=== PATIENT | female | born 1950 | race Caucasian/White ===

== ENCOUNTER 2020-06-01 17:37 | Inpatient (IN) | payer OTHER, SELFPAY ==
[~2020-06-01] VITALS: Ht 149.9 cm; Wt 59.4 kg
[2020-06-01 17:43] VITALS: BP 203/80
--- NOTE | 2020-06-01 17:55 | NUR ---
Pt w/c assisted to bed 12.
--- NOTE | 2020-06-01 18:00 | NUR ---
Patient being evaluated by Dr. Sage at bedside.
--- NOTE | 2020-06-01 18:11 | NUR ---
69/F present to ED with c/o of left forehead pain and bleeding. Stated she suffered a fall on 05/24/20 and went to the doctors office today, seen by Dr. Isabel to have hematoma drained in which the site would not stop bleeding since and was sent here. Large hematoma noted to left forehead, bruising noted to face and chest. Patient denies N/V/D or disturbance of eyesight, no LOC, patient princess pain.
[2020-06-01] MEDS ORDERED: KETOROLAC 60 MG/2 ML VIAL IM ONE (18:25)
--- NOTE | 2020-06-01 18:25 | NUR ---
Patient has complaints of pain now, Dr. Sage made aware.
[2020-06-01 18:54] LABS: BASOPHILS # (AUTO) 0.1 K/uL (0.00-0.22); BASOPHILS % (AUTO) 2.1 % (0.0-2.0); EOSINOPHILS # (AUTO) 0.3 K/uL (0-0.4); EOSINOPHILS % (AUTO) 3.9 % (0.0-4.0); HEMATOCRIT 29.1 % (36-48); HEMOGLOBIN 9.3 g/dL (12.0-16.0); LYMPHOCYTES # (AUTO) 0.6 K/uL (2.5-16.5); MEAN CORPUSCULAR HEMOGLOBIN 30 pg (27-31); MEAN CORPUSCULAR HGB CONC 32 g/dL (33-37); MEAN CORPUSCULAR VOLUME 93.6 fL (80-94); MONOCYTES # (AUTO) 0.7 K/uL (0.8-1.0); MONOCYTES % (AUTO) 10.7 % (1.7-9.3); NEUTROPHILS # (AUTO) 4.9 K/uL (1.8-7.7); NEUTROPHILS % (AUTO) 74.3 % (42.2-75.2); PLATELET COUNT (AUTO) 123 K/uL (140-450); RED BLOOD CELL COUNT(AUTO) 3.11 MIL/uL (4.20-5.40); RED CELL DISTRIBUTION WIDTH 20.7 % (11.6-13.7); WHITE BLOOD COUNT (AUTO) 6.6 K/uL (4.8-10.8)
[2020-06-01 18:58] LABS: PROTHROMBIN TIME 11.5 secs (10.8-13.4)
--- NOTE | 2020-06-01 19:15 | NUR ---
REPORT RECEIVED FROM AMY HEAD FOR SHIFT CHANGE.
--- NOTE | 2020-06-01 20:30 | NUR ---
DRESSING CHANGE PERFORMED AT BEDSIDE TO HEAD.
--- NOTE | 2020-06-01 21:04 | NUR ---
WITH PERMISSION FROM PATIENT, SPOKE WITH MAYELA, FAMILY MEMBER. UPDATE GIVEN.
--- NOTE | 2020-06-01 21:12 | NUR ---
EKG PERFORMED AT BEDSIDE. EKG READS ATRIAL PACED COMPLEXES @ 64
--- NOTE | 2020-06-01 21:17 | NUR ---
MED REC. COLLECTED FROM MAYELA, FAMILY MEMBER, PER PATIENT CONSENT.
--- NOTE | 2020-06-01 21:20 | NUR ---
DRESSING CHANGE PERFORMED TO HEAD AT BEDSIDE.
[2020-06-01 21:28] LABS: ALBUMIN 3.9 g/dL (3.4-5.0); ANION GAP 15.6 (8-16); ASPARTATE AMINOTRANSFERASE 16 U/L (15-37); CARBON DIOXIDE 27.1 mmol/L (21-32); CHLORIDE 95 mmol/L (98-107); GLUCOSE 228 mg/dL (74-106); POTASSIUM 4.7 mmol/L (3.5-5.1); SODIUM SERUM 133 mmol/L (136-145); TOTAL BILIRUBIN 0.7 mg/dL (0.0-1.0); UREA NITROGEN, BLOOD 32 mg/dL (7-18)
--- NOTE | 2020-06-01 21:28 | NUR ---
LABS DRAWN FROM 20G IV SITE RFA BY AMY CASTELLON AND HAND GIVEN TO ROULA ABREU TECH.
--- NOTE | 2020-06-01 21:29 | NUR ---
CRITICAL LAB VALUE RECIEVED BY CARLOS, CHIEF DESIGN ENGINEER. CREATININE 5.8. CARINAD MADE AWARE.
[2020-06-01 21:30] LABS: CREATININE 5.8 mg/dL (0.6-1.3)
--- NOTE | 2020-06-01 21:34 | NUR ---
HAYDEE REBOLLAR COLLECTED AND TAKEN TO LAB.
[2020-06-01] MEDS ORDERED: SIMV10TA1 PO (21:40)
[2020-06-01] MEDS ORDERED: FAMO40PD4 PO (21:40)
[2020-06-01] MEDS ORDERED: VITA1TAB44 PO (21:40)
[2020-06-01] MEDS ORDERED: SPIR25TA20 PO (21:40)
[2020-06-01] MEDS ORDERED: APR10 PO (21:40)
[2020-06-01] MEDS ORDERED: NIFE60TE5 PO (21:40)
[2020-06-01] MEDS ORDERED: TTS3 TD (21:40)
[2020-06-01] MEDS ORDERED: NOVN SUBQ (21:40)
[2020-06-01] MEDS ORDERED: FURO-570 PO (21:40)
[2020-06-01] MEDS ORDERED: CALC667T8 PO (21:40)
[2020-06-01] MEDS ORDERED: METO100T14 PO (21:40)
[2020-06-01] MEDS ORDERED: GABA100C PO (21:40)
--- NOTE | 2020-06-01 21:59 | NUR ---
CONSENT RECIEVED FROM PATIENT TO SPEAK WITH ADELINA LIN ([phone]). ALL QUESTIONS ANSWERED.
--- NOTE | 2020-06-01 22:00 | NUR ---
XRAY AT BEDSIDE.
[2020-06-01] MEDS ORDERED: LIDOCAINE/EPI MPF 1%1:200000 30 ML VIAL INJ ONE (22:21)
[2020-06-01] MEDS ORDERED: ceFAZolin 1,000 MG VIAL ONE (22:22)
--- NOTE | 2020-06-01 22:30 | NUR ---
Patient will be admitted to care of MD JOSHUA. Admited to TELEMETRY. Will go to ROOM 120-A. Belongings list completed. Report to ANAYELI JAFFE.
[2020-06-01] MEDS ORDERED: DEXAMETHASONE 4 MG/ML VIAL ONE (23:15)
[2020-06-01] MEDS ORDERED: ETOMIDATE 20 MG/10 ML VIAL IVP ONE (23:15)
[2020-06-01] MEDS ORDERED: ONDANSETRON 4 MG/2 ML VIAL ONE (23:15)
[2020-06-01] MEDS ORDERED: SUCCINYLCHOLINE CHLORIDE 200 MG/10 ML VIAL IVP ONE (23:15)
[2020-06-01] MEDS ORDERED: MIDAZOLAM 2 MG/2 ML VIAL ONE (23:15)
[2020-06-01] MEDS ORDERED: SEVOFLURANE 250 ML BTL INH ONE (23:15)
[2020-06-02] MEDS ORDERED: ONDANSETRON 4 MG/2 ML VIAL IVP PRN
[2020-06-02] MEDS ORDERED: BLOOD GLUCOSE MONITORING 1 DEV DEV FS SCH
[2020-06-02] MEDS ORDERED: MEPERIDINE 25 MG/ML SYR IVP PRN
[2020-06-02] MEDS ORDERED: DEXT 5% /NACL 0.9% 1,000 ML IV SCH (00:05)
[2020-06-02] MEDS ORDERED: MORPHINE SULFATE 2 MG/ML SYR IVP PRN (00:05)
[2020-06-02] MEDS ORDERED: HYDROcodone/APAP 5/325 MG 1 TAB TAB PO PRN (00:05)
[2020-06-02] MEDS ORDERED: ONDANSETRON 4 MG/2 ML VIAL IV PRN (00:05)
[2020-06-02] MEDS ORDERED: MORPHINE SULFATE 4 MG/ML SYR IV PRN (00:05)
[2020-06-02] MEDS ORDERED: CEFAZOLIN SODIUM 1 GM/D5W PM 50 ML IV SCH (01:00)
--- NOTE | 2020-06-02 01:30 | NUR ---
RECEIVING PATIENT FROM OR NURSE TRANSFER VIA [facility]. WILL TAKE REPORT AND START PATIENT ASSESSMENT.
[2020-06-02 01:45] VITALS: BP 170/62
--- NOTE | 2020-06-02 01:45 | NUR ---
DX BLEEDING HEMATOMA. RECEIVING PATIENT FROM OR AFTER INCISION AND DRAINAGE SCALP LEFT HEMATOMA CONTROL ACTIVE BLEEDING. PATIENT IS A/A/O X4. PUPIL EQUAL, ROUND, REACT TO LIGHT. ON TELE MONITOR. RESPIRATORY EVEN AND UNLABORED, ON 2L OXYGEN VIA NC, O2 SAT 94%, NO SIGN OF RESPIRATORY DISTRESS NOTED. SKIN WARM, DRY, NON-DIAPHORETIC. INCISION ON LEFT FOREHEAD WITH DRESSING, DRESSING INTACT, MODERATE AMOUNT OF BLOOD NOTED. SWOLLEN AND BRUISE ON LEFT EYE. BRUISE ON CHIN. CHEST BRUISE. MID CHEST SC. PACEMAKER NOTED ON LEFT UPPER CHEST. AV SHUNT ON LEFT UPPER ARM. IV ON RIGHT FOREARM 20G. PATIENT ABLE TO MAKE NEEDS KNOWN, DENIES ANY PAIN OR DISCOMFORT. PLAN OF CARE DISCUSSED, ORIENTED TO ROUTINE AND CALL LIGHT, PATIENT VERBALIZED UNDERSTANDING. MRSA SWABBED. HOB ELEVATED. PRECAUTION IN PLACE. CALL LIGHT WITHIN REACH. WILL CONTINUE TO MONITOR.
--- NOTE | 2020-06-02 02:20 | NUR ---
PAGED DR LEWIS TO CONCERNS THE DRESSING IS LOOSING AND SOAK WET WITH BLOOD. WAITING FOR RESPONSE.
--- NOTE | 2020-06-02 02:25 | NUR ---
CONTACTED OR NURSE TO CONCERN THE DRESSING. OR NURSE ARRIVE TO CHANGE DRESSING.
--- NOTE | 2020-06-02 02:45 | NUR ---
TEXT DR CASON FOR MEDICATION ORDER. WAITING FOR RESPONSE.
--- NOTE | 2020-06-02 03:29 | NUR ---
RECEIVED TEXT FROM DR CASON, [employer], NS AT 60ML/HR. CLONIDINE 0.2MG PO X1 NOW, THEN CLONIDINE 0.2MG PO DAILY, ACCUCHECK AC/HS, HUMALOG S/S. WILL PLACE ORDER AND ADMINISTER MEDICATION.
[2020-06-02] MEDS ORDERED: CLONIDINE HYDROCHLORIDE 0.1 MG TAB PO SCH (03:50)
[2020-06-02] MEDS: NACL 0.9% 1,000 ML IV SCH ×2 (03:50→20:30)
[2020-06-02 04:00] VITALS: BP 152/67
[2020-06-02 06:13] LABS: ALBUMIN 2.9 g/dL (3.4-5.0); ANION GAP 15.5 (8-16); ASPARTATE AMINOTRANSFERASE 15 U/L (15-37); CARBON DIOXIDE 24.2 mmol/L (21-32); CHLORIDE 99 mmol/L (98-107); GLUCOSE 215 mg/dL (74-106); POTASSIUM 5.7 mmol/L (3.5-5.1); SODIUM SERUM 133 mmol/L (136-145); TOTAL BILIRUBIN 0.6 mg/dL (0.0-1.0); UREA NITROGEN, BLOOD 36 mg/dL (7-18)
[2020-06-02 06:22] LABS: CREATININE 6.3 mg/dL (0.6-1.3)
--- NOTE | 2020-06-02 06:28 | NUR ---
TEXT DR CASON, PATIENT POTASSIUM 5.7 AND CREATININE 6.3. THEY ARE TRENDING UP. WAITING FOR RESPONSE.
[2020-06-02 06:29] LABS: BASOPHILS # (AUTO) 0.1 K/uL (0.00-0.22); EOSINOPHILS % (AUTO) 0.4 % (0.0-4.0); LYMPHOCYTES # (AUTO) 0.4 K/uL (2.5-16.5)
[2020-06-02 06:32] LABS: BASOPHILS % (AUTO) 1.2 % (0.0-2.0); LYMPHOCYTES % (AUTO) 4.5 % (20.5-51.1); MEAN CORPUSCULAR HEMOGLOBIN 31 pg (27-31); MEAN CORPUSCULAR HGB CONC 33 g/dL (33-37); MEAN CORPUSCULAR VOLUME 94.7 fL (80-94); MONOCYTES # (AUTO) 0.2 K/uL (0.8-1.0); MONOCYTES % (AUTO) 2.6 % (1.7-9.3); NEUTROPHILS # (AUTO) 7.3 K/uL (1.8-7.7); NEUTROPHILS % (AUTO) 91.3 % (42.2-75.2); RED BLOOD CELL COUNT(AUTO) 1.99 MIL/uL (4.20-5.40); RED CELL DISTRIBUTION WIDTH 20.2 % (11.6-13.7)
--- NOTE | 2020-06-02 06:45 | NUR ---
PAGED DR LEWIS, REPORT PATIENT HGB 6.2 AND HCT 18.8. WAITING FOR CALL BACK.
[2020-06-02 06:49] LABS: HEMOGLOBIN 6.2 g/dL (12.0-16.0)
[2020-06-02 06:50] LABS: HEMATOCRIT 18.8 % (36-48); PLATELET COUNT (AUTO) 150 K/uL (140-450)
--- NOTE | 2020-06-02 06:50 | NUR ---
RECEIVED CALL FROM DR LEWIS, NEW ORDER 3 UNITS OF PRBC STAT, AND CONTINUE NPO STATUS.
--- NOTE | 2020-06-02 07:05 | NUR ---
RECEIVED CALL FROM OR NURSE. PATIENT WILL TRANSFER TO OR AT [address] LEWIS. WILL ENDORSE TO AM NURSE FOR CONTINUITY OF CARE.
--- NOTE | 2020-06-02 07:14 | NUR ---
ENDORSED PATIENT TO AM NURSE FOR CONTINUITY OF CARE. PATIENT IS STABLE.
--- NOTE | 2020-06-02 07:15 | NUR ---
RECEIVED PATIENT FROM NIGHT NURSE. PATIENT IN BED AWAKE AND ALERT. EYES CLOSED BUT ABLE TO RESPOND APPROPRIATELY. RESP EVEN AND UNLABORED ON 2L NC. C/O MINOR ACHES TO BODY BUT TOLERABLE. HEAD WRAPPED WITH DRESSING, STAINED WITH BLOOD. NO ACTIVE BLEEDING NOTED AT THIS TIME. PACKED CELL X3 UNIT NOTED, WILL TRANSFUSE WHEN BLOOD BECOMES AVAILABLE. PATIENT SCHEDULED TO RETURN TO OR AT [address] LEWIS. RFA 20G INFUSING WELL. HOB ELEVATED. SAFETY MEASURES IN PLACE. CALL LIGHT WITHIN REACH. WILL CONTINUE TO MONITOR. Addendum: 06/02/20 at 1240 by Ihsan Turpin RN LAV SHUNT FOR HD.
[2020-06-02] MEDS: BLOOD GLUCOSE MONITORING 1 DEV DEV FS SCH ×4 (07:30→20:50)
[2020-06-02 08:00] VITALS: BP 183/66
[2020-06-02] MEDS: CALCIUM ACETATE 667 MG TAB PO SCH ×3 (08:00→16:58)
--- NOTE | 2020-06-02 08:40 | NUR ---
DR LEWIS MADE AWARE OF BP 183/66 HR 59, POTASSIUM 5.7, BUN 36 CREAT 6.3 PATIENT IS NOW NPO FOR SCHEDULED SURGERY AT [address] LEWIS, HE WANTS PATIENT DIALYZED BEFORE GOING INTO SURGERY. DR SHORE WAS PAGED. AWAITING FOR CALL BACK. HOLDING MORNING ROUTINE MEDICATIONS UNTIL FURTHER NOTICED. PATIENT IN BED AWAKE AND ALERT. ABLE TO MAKE NEEDS KNOWN. CALL LIGHT WITHIN REACH. WILL CONTINUE TO MONITOR. Addendum: 06/02/20 at 1010 by Ihsan Turpin RN FAILED ATTEMPTS MADE TO CALL FAMILY FOR PHONE CONSENT. WILL MAKE ANOTHER ATTEMPT
[2020-06-02] MEDS: hydrALAZINE 25 MG TAB PO SCH ×3 (09:00→16:58)
[2020-06-02] MEDS: FUROSEMIDE 20 MG TAB PO SCH ×2 (09:00→20:52)
[2020-06-02] MEDS ORDERED: GABAPENTIN 300 MG CAP PO SCH ×3 (09:00→13:00)
[2020-06-02] MEDS ORDERED: GABAPENTIN 100 MG CAP PO SCH (09:00)
[2020-06-02] MEDS: FAMOTIDINE 20 MG TAB PO SCH (09:00)
[2020-06-02] MEDS ORDERED: FAMOTIDINE 20 MG TAB PO SCH (09:00)
[2020-06-02] MEDS: FOLIC ACID 1 MG TAB PO SCH ×3 (09:00→16:57)
[2020-06-02] MEDS: CLONIDINE HYDROCHLORIDE 0.1 MG TAB PO SCH (09:00)
[2020-06-02] MEDS: METOPROLOL SUCCINATE 50 MG TABER PO SCH ×2 (09:00→20:51)
[2020-06-02] MEDS: SPIRONOLACTONE 25 MG TAB PO SCH (09:00)
--- NOTE | 2020-06-02 09:17 | NUR ---
FNS REFERRAL RECEIVED NOT APPROPRIATE FOR "NOT APPLICABLE" REASON WITH NO OTHER HIGH NUTRITIONAL RISK INDICATOR. PATIENT HAS BEEN SCREENED AND CATEGORIZED MODERATE NUTRITION RISK. PATIENT WILL BE SEEN WITHIN 3-5 DAYS OF ADMISSION. 06/04/20 06/06/[address]
[2020-06-02] MEDS ORDERED: DOCUSATE SODIUM 100 MG GELCAP PO PRN (09:25)
[2020-06-02] MEDS ORDERED: ONDANSETRON 4 MG/2 ML VIAL IM/IVP PRN (09:25)
[2020-06-02] MEDS ORDERED: ZOLPIDEM 5 MG TAB PO PRN (09:25)
[2020-06-02] MEDS ORDERED: ACETAMINOPHEN 325 MG TAB PO PRN (09:25)
[2020-06-02] MEDS ORDERED: LORazepam 2 MG/ML VIAL IM/IVP PRN (09:25)
[2020-06-02] MEDS ORDERED: POTASSIUM CHLORIDE 10 MEQ TABER PO PRN (09:30)
[2020-06-02] MEDS ORDERED: SODIUM ZIRCONIUM CYCLOSILICATE 10 GM POWD.PACK PO SCH (09:30)
[2020-06-02] MEDS ORDERED: MAG SULF 2000 MG/WATER PREMIX 50 ML IV PRN (09:30)
[2020-06-02] MEDS: INSULIN LISPRO SLIDING SCALE 100 UNITS/ML VIAL SUBQ PRN (09:44)
[2020-06-02] MEDS: INSULIN NPH HUMAN ISOPHANE 100 UNIT/ML VIAL SUBQ SCH (09:48)
--- NOTE | 2020-06-02 09:50 | NUR ---
RECEIVED CALL BACK FROM DR SHORE. PATIENT STATUS UPDATED. RECEIVED TELEPHONE ORDER FOR HEMODIALYSIS STAT WITH 3 UNITS PACKED CELLS TRANSFUSION, DDVAP 25MCG IV X1 OVER 30 MINS AFTER HEMODIALYSIS, GIVE ROUTINE ADALAT 60MG, HUMALOG AND HUMALIN, HOLD OTHER ROUTINE MEDICATIONS AT THIS TIME. ORDERS READ BACK CONFIRMED AND CARRIED OUT. [facility] NOTIFIED OF STAT ORDER OF HD, WILL PERFORM HD AT ESTIMATE TIME 1030. WILL CONTINUE TO MONITOR. Addendum: 06/02/20 at 1240 by Ihsan Turpin RN BRUISING NOTED TO CHEST. SKIN INTACT. NO EDEMA NOTED TO LOWER EXTREMITIES AT THIS TIME. Addendum: 06/02/20 at 1627 by Ihsan Turpin RN BRUISING NOTED TO FACE
[2020-06-02] MEDS: NIFEdipine 60 MG TABER PO SCH ×2 (09:58→20:52)
--- NOTE | 2020-06-02 10:05 | NUR ---
SOCIAL WORK NOTE: Patient's Orientation Unable To Assess Information Provided By GAETANOMABLE NICK Comments SW WAS UNABLE TO MEET PATIENT AT BEDSIDE. SW CONTACTED PATIENT'S SISTER WHO REQUESTED SW SPEAK TO NIECE TO COMPLETE ASSESSMENT. Tag Stringer, Realtionship and Phone Number GUNJAN PARKER SISTER [phone] GAETANO NICK [phone] Healthcare Power of Product Inspection Coordinator No Does Patient Have a POLST No Identifying Problems No Social Work Triggers Is A Social Work Consult Needed No Mandate Report Filed No Explanation Of Identifying Problems PATIENT IS A 69-YEAR-OLD FEMLAE ADMITTED FOR BLEEDING HEMATOMA. PATIENT HAS PMHX OF DIABETES, HYPERTENSION, AND RENAL DISEASE. Admitted From Home Pre-Admission Level Of Functioning Status Independent With DME Level Of Functioning Comment PER NIECE, PATIENT IS INDEPENDENT WITH ALL ADLS WITH USE OF WALKER. Prior Resources/Services Used In Last 12 Months No Prior Resources Used Prior DME No Prior DME Used Dialysis Hemodialysis Name And Phone Number of Dialysis Facility [facility] - [phone] ESRD Outpatient Days T TH SAT ESRD Outpatient Time [address] Living Situation Apartment Lives W/Significant Other Patient Had Caregiver No Home Support No Caregiver Issues Financial Issues No Known Financial Issue Referral To The Financial Counselor Needed No Factors/Needs No D/C Needs Identified Pt/Rep Participated In Discharge Plan Yes Patient/Family Agress With Discharge Plan Yes Discharge Plan Comments TENTATIVE DISCHARGE PLAN IS FOR PATIENT TO RETURN HOME. DC Plan Status Initiated
[2020-06-02 10:15] LABS: CHOL/HDL RATIO 2.3 (1-4.5); MAGNESIUM 2.6 mg/dL (1.8-2.4); PHOSPHORUS 3.9 mg/dL (2.5-4.9); THYROID STIMULATING HORMONE 1.81 uIU/mL (0.34-3.74)
--- NOTE | 2020-06-02 10:19 | NUR ---
DC PLANNIN YRS OLD FEMALE PATIENT WAS ADMITTED FROM HOME WITH A DX OF LEFT FOREHEAD BLEEDING HEMATOMA/WOUND. PT HAS A HX OF CABG PACEMAKER, DM, HTN AND ESRD ON HEMODIALYSIS TTHS. CXR SHOWED CARDIOMEGALY MILD PULMONARY VENOUS CONGESTION. RAPID COVID TEST NEGATIVE. H/H 6.2/18.8 ORDERED 6 UNIT OF PRBC TO BE TRANSFUSED DURING HEMODIALYSIS. PT IS SCHEDULED FOR ID AFTER HEMODIALYSIS. ADMINISTERED IVF, CONTINUED HOME MEDS. DC PLAN PER PATIENT RESPONSE TO THE TREATMENT. CM TO FOLLOW Addendum: 06/04/20 at 1131 by Angelica Carey CM DC CREDIT DEPARTMENT MANAGER: RECEIVED ORDER FOR SNF FOR PT/OT AND WOUND CARE. SPOKE TO PATIENTS GUNJAN HAWLEY [phone] TO DISCUSS SNF SHE STATED THAT IF PATIENT IS ALERT AND ORIENTED SHE DOES NOT MAKE MEDICAL DECISIONS. SPOKE TO AMY VYAS SHE STATED PATIENT IS ALERT, SHE SPOKE TO PATIENT AND PATIENT IS AGREEABLE TO SNF AND DOES NOT HAVE A PREFERENCE. Addendum: 06/04/20 at 1147 by Angelica Carey CM SARAH CONNELLY [facility]ACK[facility] . SPOKE TO WILLIAM IN ADMISSIONS SHE IS REVIEWING THE PACKET AND WILL GET BACK TO ME SHORTLY Addendum: 06/04/20 at 1242 by Angelica Carey CM SARAH CONNELLY: RECEIVED A CALL FROM WILLIAM THEY ARE ABLE TO ACCEPT PATIENT. ROOM 104-B UNDER DR. GREENBERG Addendum: 06/04/20 at 1247 by Angelica Carey CM SARAH CONNELLY[facility] [address] [place] [address] [address] DR[address] GREENBERG Addendum: 06/04/20 at 1350 by Angelica Carey CM SARAH CONNELLY: TRANSPORTATION HAS BEEN ARRANGED WITH [facility] [phone]. ETA OF FLUTE POLISHER IS 4:00 PM Addendum: 06/04/20 at 1402 by Angelica Carey CM SARAH CONNELLY: ARRANGED TRANSPORTATION FOR PATIENT TO AND FROM DIALYSIS WITH [facility]
[2020-06-02] MEDS ORDERED: DESMOPRESSIN 4 MCG/ML AMP IV SCH (10:30)
--- NOTE | 2020-06-02 10:40 | NUR ---
SPOKE TO SISTER GUNJAN LOREDO AND OBTAINED TELEPHONE CONSENTS FOR HEMODIALYSIS, BLOOD TRANSFUSION, AND OR PROCEDURE WITH DR LEWIS. ALL QUESTIONS ANSWERED. GUNJAN VERBALIZED UNDERSTANDING. WILL CONTINUE TO MONITOR.
--- NOTE | 2020-06-02 10:47 | NUR ---
HD STARTED Addendum: 06/02/20 at 1758 by Ihsan Turpin RN DR LEWIS AT BEDSIDE TO CHANGE BANDAGE TO HEAD WOUND.
--- NOTE | 2020-06-02 11:26 | NUR ---
1ST UNIT OF PACKED CELLS GIVEN TO DIALYSIS NURSE.
--- NOTE | 2020-06-02 11:40 | NUR ---
RECEIVED TELEPHONE ORDER FROM DR CASON FOR NEURONTIN 300MG PO EVERY OTHER DAY PER RX RECOMMENDATION D/T HIGH BUN/CREAT. ORDER READ BACK AND CONFIRMED, CARRIED OUT.
[2020-06-02 12:00] VITALS: BP 176/68
--- NOTE | 2020-06-02 12:19 | NUR ---
2ND UNIT OF PACKED CELLS GIVEN TO DIALYSIS NURSE. BLOOD SUGAR 122, NO INSULIN COVERAGE PER SLIDING SCALE. ROUTINE MEDICATIONS HELD AT THIS TIME DURING HD PER HD NURSE. PATIENT IN BED EASILY AWAKE AND ALERT. NO NOTED DISTRESS AT THIS TIME. WILL CONTINUE TO MONITOR.
--- NOTE | 2020-06-02 14:45 | NUR ---
HD DONE WITH 3 UNITS OF PACKED CELLS TRANSFUSED. PATIENT TOLERATED WELL. BP 216/71 HR 60. MORPHINE GIVEN AT THIS TIME. DR CASON MADE AWARE. WILL REASSESS BP LATER FOR EFFECTIVENESS. PERSONAL CARE RENDERED. PATIENT TOLERATED WELL. WILL CONTINUE TO MONITOR. Addendum: 06/02/20 at 1820 by Ihsan Turpin RN 2L OUT FROM HD
[2020-06-02 16:00] VITALS: BP 185/75
[2020-06-02 16:05] LABS: BASOPHILS % (AUTO) 0.3 % (0.0-2.0); HEMATOCRIT 32.4 % (36-48); HEMOGLOBIN 10.8 g/dL (12.0-16.0); LYMPHOCYTES # (AUTO) 0.6 K/uL (2.5-16.5); LYMPHOCYTES % (AUTO) 6.6 % (20.5-51.1); MEAN CORPUSCULAR HEMOGLOBIN 30 pg (27-31); MEAN CORPUSCULAR HGB CONC 33 g/dL (33-37); MEAN CORPUSCULAR VOLUME 90.8 fL (80-94); MONOCYTES # (AUTO) 1.6 K/uL (0.8-1.0); MONOCYTES % (AUTO) 16.3 % (1.7-9.3); NEUTROPHILS # (AUTO) 7.4 K/uL (1.8-7.7); NEUTROPHILS % (AUTO) 76.8 % (42.2-75.2); PLATELET COUNT (AUTO) 93 K/uL (140-450); RED BLOOD CELL COUNT(AUTO) 3.57 MIL/uL (4.20-5.40); RED CELL DISTRIBUTION WIDTH 16.9 % (11.6-13.7); WHITE BLOOD COUNT (AUTO) 9.7 K/uL (4.8-10.8)
[2020-06-02 16:15] LABS: ANION GAP 9.2 (8-16); CARBON DIOXIDE 30.3 mmol/L (21-32); CHLORIDE 99 mmol/L (98-107); CREATININE 3.5 mg/dL (0.6-1.3); GLUCOSE 120 mg/dL (74-106); POTASSIUM 3.5 mmol/L (3.5-5.1); SODIUM SERUM 135 mmol/L (136-145); UREA NITROGEN, BLOOD 18 mg/dL (7-18)
[2020-06-02] MEDS ORDERED: DESMOPRESSIN 0.025 MG in NACL 0.9% 50 ML IV SCH (16:30)
--- NOTE | 2020-06-02 16:41 | NUR ---
BLOOD GLUCOSE 103, NO INSULIN PROVIDED PER SLIDING SCALE. BP 185/[address] CASON MADE AWARE, RECEIVED ORDER FOR HYDRALAZINE 10MG IVP X1 NOW. ORDER CARRIED OUT. Addendum: 06/02/20 at 1758 by Ihsan Turpin RN NO NOTED DRAINAGE TO HEAD BANDAGE. CLEAN AND INTACT
--- NOTE | 2020-06-02 16:55 | NUR ---
RECEIVED ORDER CLARIFICATION: GIVE ROUTINE HYDRALAZINE PO, AND CHANGE HYDRALAZINE 10MG IVP Q6H FOR SBP >180. ORDER CARRIED OUT.
[2020-06-02] MEDS ORDERED: hydrALAZINE 20 MG/ML VIAL IVP SCH (17:00)
--- NOTE | 2020-06-02 17:43 | NUR ---
PATIENT IN BED SLEEPING, CHEST NOTED RISING. RESP EVEN AND UNLABORED ON 2LNC, O2SAT 97%. NO NOTED ACUTE S/S DISTRESS. CALL LIGHT WITHIN REACH. WILL CONTINUE TO MONITOR.
--- NOTE | 2020-06-02 19:20 | NUR ---
ENDORSED PATIENT TO NIGHT NURSE. PATIENT IN STABLE CONDITION.
--- NOTE | 2020-06-02 19:32 | NUR ---
PT SEEN AND ASSESSED. PT IS AWAKE AND ALERT. FOUND PT ON 2L NASAL CANNULA WITH SPO2 OF 100%. TITRATED PT TO ROOM AIR. SPO2 95%.PT TOLERATING WELL. AUSCULTATION REVEALS CLEAR/ DIMINISHED BREATH SOUNDS. NO NOTED RESPIRATORY DISTRESS AT THIS TIME.RN NOTIFIED. WILL CONTINUE TO MONITOR PT.
--- NOTE | 2020-06-02 19:40 | NUR ---
RECEIVED BEDSIDE REPORT FROM DAY SHIFT NURSE FOR CONTINUITY OF CARE. PT SCHEDULE WAS CHANGED AND NOW ENDORSED INFORMATION TO CHERELLE RN (HOLISTIC SPECIALIST NURSE). PLAN OF CARE DISCUSSED.
[2020-06-02 20:00] VITALS: BP 169/58
--- NOTE | 2020-06-02 20:00 | NUR ---
RECEIVED PATIENT A/A/OX4, LAYING IN BED NOT IN ANY DISTRESS . PATIENT DENIES ANY CHEST PAIN, SOB AND PALPITATIONS. PT JUST VERBALIZED THAT SHE HAS ABDOMINAL PAIN AND WANTED SOMETHING FOR IT. WILL MEDICATE THE PATIENT ORDERED. PATIENT S/P I & D OF THE LEFT FOREHEAD WOUND,EVACUATION OF HEMATOMA & CONTROL OF BLEEDING. HEAD DRESSING C/D/I, NO OOZING OR BLEEDING NOTED.VITAL SIGNS STABLE, AFEBRILE, SATING 94% ON 2L/NC. SR WITH BBB, HR- 75. FALL PRECAUTION IMPLEMENTED. INSTRUCTED THE PT NOT TO GET OUT OF BED AND TO CALL FOR ASSISTANCE AT ALL TIMES. PT VERBALIZED UNDERSTANDING WITH THE POC. CALL LIGHT WITHIN REACH. WILL CONTINUE POC AND MONITORING.
[2020-06-02] MEDS: HYDROmorphone 1 MG/ML AMP IVP PRN (20:53)
[2020-06-02] MEDS: SIMVASTATIN 10 MG TAB PO SCH (21:03)
--- NOTE | 2020-06-02 22:00 | NUR ---
ADMINISTERED ALL THE SCHEDULED MEDICATIONS ORDERED AND PT TOLERATED IT WELL. NO ADVERSE DRUG REACTION NOTED. NO COMPLAIN FROM THE PATIENT.
[2020-06-03] VITALS (8 sets, daily range): BP systolic 155–197; BP diastolic 57–72
--- NOTE | 2020-06-03 | NUR ---
BP HIGH 195/72, WILL GIVE THE PRN MEDICATION,AFEBRILE, SATING 99% ON 2L/NC. SR WITH BBB TOBACCO PRIZER, HR-74. NO COMPLAIN OF PAIN AT THIS TIME.
[2020-06-03] MEDS: hydrALAZINE 20 MG/ML VIAL IVP PRN ×3 (00:36→10:32)
--- NOTE | 2020-06-03 02:00 | NUR ---
PATIENT ASLEEP AT THIS TIME. VISIBLE CHEST RISE AND FALL NOTED. NOT IN ANY DISTRESS. CALL LIGHT WITHIN REACH.
[2020-06-03] MEDS: NACL 0.9% 1,000 ML IV SCH ×2 (02:50→10:54)
--- NOTE | 2020-06-03 04:00 | NUR ---
BP HIGH AGAIN 186/62, HR-68, AFEBRILE, SATING 100% ON 2L/NC. ACCELERATED JUNCTIONAL RHYTHM ON COTTON MACHINE OPERATOR, HR-68. NO COMPLAIN OF PAIN AT THIS TIME.
[2020-06-03 05:52] LABS: ANION GAP 11.9 (8-16); CARBON DIOXIDE 30.1 mmol/L (21-32); CHLORIDE 98 mmol/L (98-107); GLUCOSE 121 mg/dL (74-106); SODIUM SERUM 136 mmol/L (136-145); UREA NITROGEN, BLOOD 22 mg/dL (7-18)
[2020-06-03 06:09] LABS: BASOPHILS # (AUTO) 0.1 K/uL (0.00-0.22); BASOPHILS % (AUTO) 0.7 % (0.0-2.0); EOSINOPHILS # (AUTO) 0.1 K/uL (0-0.4); EOSINOPHILS % (AUTO) 0.9 % (0.0-4.0); HEMATOCRIT 30.9 % (36-48); HEMOGLOBIN 10.2 g/dL (12.0-16.0); LYMPHOCYTES # (AUTO) 0.7 K/uL (2.5-16.5); LYMPHOCYTES % (AUTO) 7.3 % (20.5-51.1); MEAN CORPUSCULAR HEMOGLOBIN 30 pg (27-31); MEAN CORPUSCULAR HGB CONC 33 g/dL (33-37); MEAN CORPUSCULAR VOLUME 92.5 fL (80-94); MONOCYTES # (AUTO) 1.5 K/uL (0.8-1.0); MONOCYTES % (AUTO) 15.2 % (1.7-9.3); NEUTROPHILS # (AUTO) 7.5 K/uL (1.8-7.7); NEUTROPHILS % (AUTO) 75.9 % (42.2-75.2); PLATELET COUNT (AUTO) 107 K/uL (140-450); RED BLOOD CELL COUNT(AUTO) 3.34 MIL/uL (4.20-5.40); RED CELL DISTRIBUTION WIDTH 17.4 % (11.6-13.7); WHITE BLOOD COUNT (AUTO) 9.9 K/uL (4.8-10.8)
[2020-06-03 06:11] LABS: MAGNESIUM 2.1 mg/dL (1.8-2.4); PHOSPHORUS 3.8 mg/dL (2.5-4.9)
[2020-06-03] MEDS: BLOOD GLUCOSE MONITORING 1 DEV DEV FS SCH ×4 (06:12→21:07)
[2020-06-03 06:19] LABS: CREATININE 4.6 mg/dL (0.6-1.3)
--- NOTE | 2020-06-03 06:55 | NUR ---
PATIENT STABLE. NO ACUTE EVENTS THROUGHOUT THE NIGHT. PATIENT IS NOT IN ANY DISTRESS. NO COMPLAIN AT THIS TIME. ALL NEEDS ATTENDED. CALL LIGHT WITHIN REACH. WILL ENDORSE THE PT TO THE ONCOMING RN FOR CONTINUITY OF CARE.
--- NOTE | 2020-06-03 07:15 | NUR ---
RECEIVED REPORT FROM CIGAR PACKER AND SHADER RN FOR CONTINUITY OF CARE. PATIENT ASLEEP IN BED WITH 2L OXYGEN VIA NC. O2 SAT 100%, HR 71. FOREHEAD COVERED WITH DRESSING, BRUISES AT FACE S/P FALL ON 05/24. TEMO AV SHUNT FOR HD. IV SITE TO RFA 20G INFUSING NS@ 60ML/HR. NPO STATUS FOR PENDING PROCEDURE WASHOUT LEFT FOREHEAD WOUND. CONTROL BLEEDING, CLOSURE WOUND WITH DRAINS UNDER DR. LEWIS. PATIENT'S SBP> 180S PER CIGAR PACKER AND SHADER. SAFETY MEASURES IN PLACE, WILL CONTINUE TO CLOSELY TO MONITOR.
--- NOTE | 2020-06-03 08:05 | NUR ---
REPORTED DR. LEWIS REGARDING PATIENT'S BP LEVEL 197/67. PATIENT NPO STATUS. PER DR. LEWIS, IT'S OK TO GIVE MEDICATIONS WITH SIPS OF WATER. WILL CARRY OUT.
[2020-06-03 08:07] LABS: T4 (THYROXINE) 6.6 ug/dL (4.5-12.0)
[2020-06-03] MEDS: CALCIUM ACETATE 667 MG TAB PO SCH ×3 (08:15→17:22)
[2020-06-03] MEDS: NIFEdipine 60 MG TABER PO SCH ×2 (08:16→21:05)
[2020-06-03] MEDS: hydrALAZINE 25 MG TAB PO SCH ×4 (08:17→17:27)
[2020-06-03] MEDS: INSULIN NPH HUMAN ISOPHANE 100 UNIT/ML VIAL SUBQ SCH (08:17)
[2020-06-03] MEDS: SPIRONOLACTONE 25 MG TAB PO SCH (08:17)
[2020-06-03] MEDS: CLONIDINE HYDROCHLORIDE 0.1 MG TAB PO SCH ×2 (08:17→21:06)
[2020-06-03] MEDS: FAMOTIDINE 20 MG TAB PO SCH (08:18)
[2020-06-03] MEDS: FUROSEMIDE 20 MG TAB PO SCH ×2 (08:18→21:04)
--- NOTE | 2020-06-03 08:18 | NUR ---
SCHEDULED MEDICATIONS GIVEN, BP 197/67. HR 67. PT DENIED PAIN.
[2020-06-03] MEDS: FOLIC ACID 1 MG TAB PO SCH ×3 (08:19→17:22)
[2020-06-03] MEDS: METOPROLOL SUCCINATE 50 MG TABER PO SCH ×2 (08:19→21:07)
--- NOTE | 2020-06-03 08:24 | NUR ---
PATIENT PICKED UP BY THE OR NURSE. WILL FOLLOW UP.
[2020-06-03] MEDS ORDERED: fentaNYL citrate 0.05 MG/ML VIAL ONE (08:40)
[2020-06-03] MEDS ORDERED: SEVOFLURANE 250 ML BTL INH ONE (08:40)
[2020-06-03] MEDS ORDERED: PROPOFOL 200 MG/20 ML VIAL IV ONE (08:40)
[2020-06-03] MEDS ORDERED: LIDOCAINE/EPI 1% 1:100000 20 ML VIAL INJ ONE (08:43)
[2020-06-03] MEDS ORDERED: BUPIVACAINE MPF 0.25% 10 ML VIAL INJ ONE (08:43)
[2020-06-03] MEDS ORDERED: GABAPENTIN 300 MG CAP PO SCH (09:00)
[2020-06-03] MEDS ORDERED: HYDROmorphone 1 MG/ML AMP IVP PRN (09:15)
[2020-06-03] MEDS ORDERED: BLOOD GLUCOSE MONITORING 1 DEV DEV FS SCH (09:20)
[2020-06-03] MEDS ORDERED: ONDANSETRON 4 MG/2 ML VIAL IVP PRN (09:20)
[2020-06-03] MEDS ORDERED: NACL 0.9% 1,000 ML IV SCH (09:20)
[2020-06-03] MEDS ORDERED: diphenhydrAMINE 50 MG/ML VIAL IVP PRN (09:20)
--- NOTE | 2020-06-03 10:15 | NUR ---
PATIENT CAME BACK FROM OR, VITAL SIGNS CHECKED, NEW HARRIETT DRAIN AT LEFT HEAD, COVERED WITH GAUZE AND DRESSINGS. PATIENT AWAKABLE BUT SLEEPY. WILL CONTINUE TO MONITOR.
--- NOTE | 2020-06-03 10:29 | NUR ---
REPORT TO DR. LEWIS, DR. FERNANDEZ AND DR. CRAIG REGARDING PATIENT'S SBP 190, PER DR. CRAIG. IT'S OK TO GIVE PRN DOSE OF HYDRALAZINE 10MG VIA IVP. WILL CARRY OUT.
--- NOTE | 2020-06-03 10:32 | NUR ---
PRN HYDRALAZINE 10MG GIVEN VIA IVP FOR BP 189/64. WILL CONTINUE TO CLOSELY TO MONITOR.
--- NOTE | 2020-06-03 10:45 | NUR ---
INFORMED DR. FERNANDEZ THAT PATIENT IS DIALYSIS PATIENT. NEW ORDER OBTAINED TO DECREASE INFUSING RATE OF NS TO 30ML/HR. WILL CARRY OUT.
--- NOTE | 2020-06-03 11:20 | NUR ---
NOTIFIED GUEVARA REGARDING HEMODIALYSIS ORDER FOR TOMORROW.
--- NOTE | 2020-06-03 11:24 | NUR ---
ACCUCHECK DONE, BS 104, NO INSULIN COVERAGE NEEDED. PATIENT ASLEEP IN BED COMFORTABLY, O2 SAT 100% WITH 2L OXYGEN VIA NC. HR 61, WILL CONTINUE TO MONITOR.
[2020-06-03] MEDS: HYDROmorphone 1 MG/ML AMP IVP PRN ×2 (13:58→23:15)
[2020-06-03] MEDS: INSULIN LISPRO SLIDING SCALE 100 UNITS/ML VIAL SUBQ PRN (17:19)
--- NOTE | 2020-06-03 17:25 | NUR ---
8ML OF RED COLOR DRAINAGE COLLECTED FROM THE HARRIETT DRAIN FROM THE LEFT HEAD, PLUS 10ML OF DRAINAGE COLLECT FROM THE OR. TOTAL 18 ML OF DRAINAGE FOR DAY SHIFT. WILL ENDORSE TO TUBE SORTER.
--- NOTE | 2020-06-03 17:28 | NUR ---
SCHEDULED MEDICATIONS GIVEN. V/S TEMP 98.3 ORAL, BP 185/62, HR 64, O2 SAT 98%, HR 64. WILL CONTINUE TO MONITOR.
--- NOTE | 2020-06-03 19:10 | NUR ---
ENDORSED PATIENT TO SOLAR SYSTEM INSTALLER RN FOR CONTINUITY OF CARE. PATIENT IN STABLE CONDITION. BP 158/59. O2 97% WITH 2L NC, HR 60.
--- NOTE | 2020-06-03 19:16 | NUR ---
PT SEEN AND ASSESSED. PT IS AWAKE AND ALERT. FOUND PT ON 3L NASAL CANNULA WITH SPO2 OF 98%. AUSCULTATION REVEALS CLEAR/ DIMINISHED BREATH SOUNDS. NO NOTED RESPIRATORY DISTRESS AT THIS TIME.RN NOTIFIED. WILL CONTINUE TO MONITOR PT.
--- NOTE | 2020-06-03 19:40 | NUR ---
RECEIVED BEDSIDE REPORT FROM DAY RN FOR CONTINUITY OF CARE. PATIENT ASLEEP BUT AROUSABLE. SP WASHOUT LEFT FOREHEAD WOUND,CONTROL BLEEDING AND CLOSURE OF WOUND WITH DRAINS. HARRIETT IN PLACED DRAINING SEROSANGUINEOUS FLUID. LEFT FOREHEAD WOUND DRESSING C/D/I, NO BLEEDING OR OOZING NOTED ON THE SITE. HOB ELEVATED TO DECREASE PRESSURE TO THE HEAD. NO COMPLAIN AT THIS TIME. NOT IN ANY DISTRESS. SR ON FINISH CLEANER, HR-66. VSS, AFEBRILE,SATING 98% ON 3L/NC. FALL PRECAUTION IMPLEMENTED. INSTRUCTED THE PT NOT TO GET OUT OF BED WITHOUT ASSISTANCE. PATIENT VERBALIZED UNDERSTANDING WITH THE POC. CALL LIGHT WITHIN REACH.WILL CONTINUE POC & MONITORING.
[2020-06-03] MEDS: SIMVASTATIN 10 MG TAB PO SCH (21:06)
--- NOTE | 2020-06-03 21:23 | NUR ---
Patient fransico Barclya called and updated her with the patient condition and plan of care.
--- NOTE | 2020-06-03 22:00 | NUR ---
ADMINISTERED ALL THE SCHEDULED MEDICATIONS ORDERED AND PT TOLERATED IT WELL. NO ADVERSE DRUG REACTION NOTED. NO COMPLAIN FROM THE PATIENT.
[2020-06-04] VITALS: BP 145/57
--- NOTE | 2020-06-04 | NUR ---
VITAL SIGNS STABLE,AFEBRILE, SATING 98% ON 3L/NC . SR WITH BBB ON SALES CENTER MANAGER, HR-60. NO COMPLAIN OF PAIN AT THIS TIME. CALL LIGHT WITHIN REACH.
--- NOTE | 2020-06-04 02:00 | NUR ---
PATIENT ASLEEP AT THIS TIME. VISIBLE CHEST RISE AND FALL NOTED. NOT IN ANY DISTRESS. CALL LIGHT WITHIN REACH.
[2020-06-04 04:00] VITALS: BP 157/74
--- NOTE | 2020-06-04 04:00 | NUR ---
VITAL SIGNS STABLE,AFEBRILE, SATING 97% ON 3L/NC . SR WITH BBB ON DIRECTOR ENTERPRISE DATA ARCHITECTURE, HR-65. NO COMPLAIN OF PAIN AT THIS TIME. CALL LIGHT WITHIN REACH.
[2020-06-04 06:14] LABS: BASOPHILS # (AUTO) 0.1 K/uL (0.00-0.22); EOSINOPHILS # (AUTO) 0.2 K/uL (0-0.4); EOSINOPHILS % (AUTO) 1.6 % (0.0-4.0); HEMATOCRIT 28.6 % (36-48); HEMOGLOBIN 9.3 g/dL (12.0-16.0); LYMPHOCYTES # (AUTO) 0.6 K/uL (2.5-16.5); LYMPHOCYTES % (AUTO) 5.4 % (20.5-51.1); MEAN CORPUSCULAR HEMOGLOBIN 30 pg (27-31); MEAN CORPUSCULAR HGB CONC 33 g/dL (33-37); MEAN CORPUSCULAR VOLUME 93.5 fL (80-94); MONOCYTES # (AUTO) 1.4 K/uL (0.8-1.0); MONOCYTES % (AUTO) 13.7 % (1.7-9.3); NEUTROPHILS # (AUTO) 8.1 K/uL (1.8-7.7); NEUTROPHILS % (AUTO) 78.3 % (42.2-75.2); PLATELET COUNT (AUTO) 124 K/uL (140-450); RED BLOOD CELL COUNT(AUTO) 3.06 MIL/uL (4.20-5.40); WHITE BLOOD COUNT (AUTO) 10.3 K/uL (4.8-10.8)
[2020-06-04] MEDS: BLOOD GLUCOSE MONITORING 1 DEV DEV FS SCH ×3 (06:16→16:44)
[2020-06-04] MEDS: INSULIN LISPRO SLIDING SCALE 100 UNITS/ML VIAL SUBQ PRN (06:16)
--- NOTE | 2020-06-04 07:20 | NUR ---
RECEIVED HANDOFF FROM CERTIFIED NURSE OPERATING ROOM RN. PT IS ALERT AND ORIENTED X4 PER CERTIFIED NURSE OPERATING ROOM, BUT APPEARS CONFUSED AT THIS TIME. PT IS ON 3 L NC, RESPIRATIONS EVEN AND UNLABORED, NO SIGNS OF RESPIRATORY DISTRESS. PT IS SR ON THE MONITOR AT THIS TIME. FOR ACCESS PT HAS RA 20 G AND L AV SHUNT FOR HD. NS IS RUNNING AT 30 ML/HR. PT IS ON RENAL DIET. HARRIETT DRAIN IS PRESENT FOR FOREHEAD WOUND, DRAINING MINIMAL FLUID. DRESSING IS DRY AND INTACT. HOB IS 30 DEG WITH BED IN LOW, LOCKED POSITION. CALL LIGHT WITHIN REACH.
[2020-06-04 07:26] LABS: ANION GAP 11.9 (8-16); CARBON DIOXIDE 27.3 mmol/L (21-32); CHLORIDE 98 mmol/L (98-107); GLUCOSE 159 mg/dL (74-106); POTASSIUM 4.2 mmol/L (3.5-5.1); SODIUM SERUM 133 mmol/L (136-145); UREA NITROGEN, BLOOD 30 mg/dL (7-18)
[2020-06-04 07:28] LABS: MAGNESIUM 2.2 mg/dL (1.8-2.4); PHOSPHORUS 3.6 mg/dL (2.5-4.9)
[2020-06-04 07:38] LABS: CREATININE 5.7 mg/dL (0.6-1.3)
[2020-06-04 08:00] VITALS: BP 170/64
--- NOTE | 2020-06-04 08:00 | NUR ---
PT'S LEFT FOREHEAD WOUND WAS CONNECTED TO HARRIETT BULB, VERY MINIMAL AMOUNT OF BLOOD NOTED ON THE HARRIETT BULB, ASSESSED AND REINFORCED WITH DRESSING BECAUSE PT REMOVED THE DRESSING THAT WAS PREVIOUSLY PLACED. NO SIGN OF DISTRESS NOTED AND WILL CONTINUE TO MONITOR,PT.
[2020-06-04] MEDS: hydrALAZINE 25 MG TAB PO SCH ×3 (08:30→17:00)
[2020-06-04] MEDS: METOPROLOL SUCCINATE 50 MG TABER PO SCH (08:30)
[2020-06-04] MEDS: CLONIDINE HYDROCHLORIDE 0.1 MG TAB PO SCH (08:30)
[2020-06-04] MEDS: NIFEdipine 60 MG TABER PO SCH (08:30)
[2020-06-04] MEDS: HYDROmorphone 1 MG/ML AMP IVP PRN (08:34)
[2020-06-04] MEDS: CALCIUM ACETATE 667 MG TAB PO SCH ×3 (08:41→17:00)
--- NOTE | 2020-06-04 08:45 | NUR ---
DR. FERNANDEZ CAME TO THE PT'S ROOM AND DISCUSSED TO PT THE POC FOR TODAY AND SAID THAT PT WILL POSSIBLY DISCHARGHED LATER TODAY AND PT VERBALIZED UNDERSTANDING.
[2020-06-04] MEDS: FOLIC ACID 1 MG TAB PO SCH ×3 (08:46→17:00)
[2020-06-04] MEDS: FUROSEMIDE 20 MG TAB PO SCH (08:47)
[2020-06-04] MEDS: SPIRONOLACTONE 25 MG TAB PO SCH (08:48)
[2020-06-04] MEDS: FAMOTIDINE 20 MG TAB PO SCH (08:48)
[2020-06-04] MEDS: INSULIN NPH HUMAN ISOPHANE 100 UNIT/ML VIAL SUBQ SCH (08:48)
[2020-06-04] MEDS ORDERED: EPOETIN ALFA-EPBX 4,000 UNITS/ML VIAL SUBQ SCH (09:00)
--- NOTE | 2020-06-04 09:00 | NUR ---
PER GINNY FRAIRE TO HOLD EPIOTIN UNTIL AFTER HD.
[2020-06-04] MEDS ORDERED: NIFE60TE5 PO (09:30)
[2020-06-04] MEDS ORDERED: CLON0.3T9 PO (09:30)
[2020-06-04] MEDS ORDERED: HYDR100T49 PO (09:30)
[2020-06-04] MEDS ORDERED: HYDR-5080 PO (09:31)
--- NOTE | 2020-06-04 09:31 | NUR ---
MEDICATIONS ADMINISTERED PER ORDER, EXCEPT BP MEDICATIONS HELD AT THIS TIME PER CLOTH SHRINKING SUPERVISOR GUEVARA'S REQUEST. PT IS TO HAVE DIALYSIS WITHIN THE NEXT HOUR. PT ABLE TO SWALLOW PILLS WITH APPLESAUCE WITH NO SIGNS OF CHOKING OR DISTRESS. SAFETY MEASURES IN PLACE, PT REMINDED TO USE CALL LIGHT IF NEEDING ASSISTANCE, VERBALIZED UNDERSTANDING.
--- NOTE | 2020-06-04 10:10 | NUR ---
PER DR. FERNANDEZ, PT WILL PROBABLY BE DISCHARGED TO SNF INSTEAD OF HOME DUE PT'S NEEDS FOR WOUND CARE AND HEMODIALYSIS. HEAT TREATING FURNACE TENDER MADE AWARE BY DR. FERNANDEZ
--- NOTE | 2020-06-04 10:20 | NUR ---
DIALYSIS WAS STARTED NOW.
[2020-06-04] MEDS: NACL 0.9% 1,000 ML IV SCH (11:11)
--- NOTE | 2020-06-04 11:23 | NUR ---
MEDICATIONS ADMINISTERED PER ORDER. PT ABLE TO SWALLOW PILLOWS WITH APPLESAUCE. VSS, PT UNDERGOING HD AT THIS TIME. TEMPERATURE 97.4. DENIES PAIN.
[2020-06-04 11:55] VITALS: BP 186/66
--- NOTE | 2020-06-04 12:58 | NUR ---
HYDRALAZINE ADMINISTERED PER ORDER, OKAY PER RESISTOR TESTING MACHINE OPERATOR. PER RESISTOR TESTING MACHINE OPERATOR, CONTINUE TO HOLD EPOETIN UNTIL FINISHED WITH HD.
--- NOTE | 2020-06-04 13:57 | NUR ---
DR. LEWIS CAME TO THE PT'S ROOM AND REMOVED THE HARRIETT DRAIN AND REINFORCED THE DRESSING.
--- NOTE | 2020-06-04 13:58 | NUR ---
DR. LEWIS AT BEDSIDE, REMOVED HARRIETT DRAIN. PER DR. LEWIS, LEAVE STERISTRIPS IN PLACE OVERTOP OF WOUND.
--- NOTE | 2020-06-04 14:25 | NUR ---
SPOKE TO LACE BURN OUT TENDER, PT WILL BE TRANSFERRED TO [facility] AT 4 PM
--- NOTE | 2020-06-04 14:45 | NUR ---
ATTEMPTED TO CALL [facility] TO GIVE REPORT, MIKA WAS BUSY.
--- NOTE | 2020-06-04 15:05 | NUR ---
CALLED [facility], GAVE REPORT TO TATY, WHO WILL BE RECEIVING THE PT IN BED 104B
[2020-06-04 16:00] VITALS: BP 158/64
--- NOTE | 2020-06-04 16:47 | NUR ---
[facility] PERSONNEL, FOR PT/OT AND WOUND CARE, REPORT GIVEN TO FACILITY RN, IV LINE AND ARM BAND REMOVED, PT IS STABLE AT THIS TIME.
== END 2020-06-04 17:00 | DRG 579 ==
LOC: MED 17:37 → MTU 22:08
PROC: 5A1D70Z Performance of Urinary Filtration, Intermittent, Less than 6 Hours Per Day (ICD-10-PCS; principal; 2020-06-02)
PROC: 0W300ZZ Control Bleeding in Head, Open Approach (ICD-10-PCS; 2020-06-02)
PROC: 30233N1 Transfusion of Nonautologous Red Blood Cells into Peripheral Vein, Percutaneous Approach (ICD-10-PCS; 2020-06-02)
PROC: 0JC00ZZ Extirpation of Matter from Scalp Subcutaneous Tissue and Fascia, Open Approach (ICD-10-PCS; 2020-06-02)
PROC: 0JQ00ZZ Repair Scalp Subcutaneous Tissue and Fascia, Open Approach (ICD-10-PCS; 2020-06-03)
PROC: 5A1D70Z Performance of Urinary Filtration, Intermittent, Less than 6 Hours Per Day (ICD-10-PCS; 2020-06-03)
DX: S01.00XA Unspecified open wound of scalp, initial encounter (principal); N18.6 End stage renal disease; N17.0 Acute kidney failure with tubular necrosis; E87.1 Hypo-osmolality and hyponatremia; E44.0 Moderate protein-calorie malnutrition; D62 Acute posthemorrhagic anemia; I13.2 Hypertensive heart and chronic kidney disease with heart failure and with stage 5 chronic kidney disease, or end stage renal disease; E11.22 Type 2 diabetes mellitus with diabetic chronic kidney disease; Z99.2 Dependence on renal dialysis; I50.9 Heart failure, unspecified; Z20.822 Contact with and (suspected) exposure to COVID-19; Z88.8 Allergy status to other drugs, medicaments and biological substances; E83.39 Other disorders of phosphorus metabolism; E83.42 Hypomagnesemia; E87.5 Hyperkalemia; I25.10 Atherosclerotic heart disease of native coronary artery without angina pectoris; Z85.3 Personal history of malignant neoplasm of breast; Z95.0 Presence of cardiac pacemaker; Z95.1 Presence of aortocoronary bypass graft; W18.39XA Other fall on same level, initial encounter; Y93.89 Activity, other specified; Y92.89 Other specified places as the place of occurrence of the external cause; Y99.8 Other external cause status; K21.9 Gastro-esophageal reflux disease without esophagitis; E78.5 Hyperlipidemia, unspecified; E11.40 Type 2 diabetes mellitus with diabetic neuropathy, unspecified; Z68.26 Body mass index [BMI] 26.0-26.9, adult
CPT/HCPCS: 36415; 70450; 71045; 80048; 80053; 82150; 82948; 83036; 83690; 83735; 83880; 84100; 84134; 84436; 84443; 84484; 85025; 85610; 85730; 86886; 86900; 86901; 86920; 87081; 93005; 99285; J0330; J0360; J0690; J1100; J1170; J1885; J2001; J2250; J2270; J2405; J2597; J2704; J3010; J3490; J7030; J7060; P9016; Q5106